=== PATIENT | female | born 1990 | race Caucasian/White ===

== ENCOUNTER 2024-12-21 17:33 | Emergency (ER) | payer BC, SELFPAY ==
[2024-12-21 17:59] VITALS: BP 105/73; PULSE 92; RESP 18; TEMP 36.9; O2SAT 97
[2024-12-21 18:00] VITALS: BMI 22.4
--- NOTE | 2024-12-21 18:14 | XR_ITS ---
Examination: PA lateral chest 2 views Technique: Upright PA lateral chest 2 views Exam date and time: Coughing today Findings: Normal heart size Lungs are clear The osseous structures are intact Impression: No active disease
--- NOTE | 2024-12-21 18:23 | PD.EDURI ---
Upper Respiratory Inf. RME/HPI General Chief Complaint: Shortness of Breath/Dyspnea Stated Complaint: COUGH WITH HX ASTHMA; INHALER NOT HELPING Time Seen by Provider: 12/21/24 18:07 Arrival date/time: 12/21/24 17:33 RME / HPI RME / HPI Narrative: 34-year-old female with history of asthma presents with complaint of cough for approximately 1 week. Patient completed course of antibiotics and is not feeling better. She reports shortness of breath but denies any chest pain. No abdominal pain. No nausea or vomiting. Related Data Home Medications ?Medication ?Instructions ?Recorded ?Confirmed vit no.95-ferrous 1 tab PO QDAY 09/21/19 06/08/23 fumarate 28 mg-folic acid 800 mcg tablet () Previous Rx's ?Medication ?Instructions ?Recorded docusate sodium 100 mg capsule 100 mg PO BID #60 caps 06/09/23 (Colace) ibuprofen 800 mg tablet 800 mg PO Q6H PRN pain #90 tabs 06/09/23 lanolin 50 % topical ointment 1 applic topical TID PRN skin 06/09/23 irritation #15 tubes sulfamethoxazole 800 1 tab PO BID #14 tabs 07/24/23 mg-trimethoprim 160 mg tablet (Bactrim DS) dextromethorphan-guaifenesin 10 10 ml PO Q8H PRN cough #500 mL 12/21/24 mg-100 mg/5 mL oral liquid prednisone 20 mg tablet 40 mg (2 x 20 mg) PO QDAY 3 days 12/21/24 #6 tabs Allergies Allergy/AdvReac Type Severity Reaction Status Date / Time latex Allergy Severe rash Verified 12/21/24 17:34 Penicillins Allergy Severe SOB Verified 12/21/24 17:34 Review of Systems Review of Systems Narrative Review of Systems: Review of systems negative except as outlined in the HPI. Past Medical History Past Medical History NEUROLOGIC: Negative Neurological Disorders CARDIAC: Negative Cardiac Disorders or Congestive Heart Failure RESPIRATORY: Positive Asthma; Negative Chronic Obstructive Pulmonary Disease (COPD) GASTROINTESTINAL: Negative Gastrointestinal Disorders, Hepatitis or Colorectal Cancer GENITOURINARY: Negative Genitourinary Disorders, Renal Disease or Prostate Cancer REPRODUCTIVE: Positive Previous Pregnancies; Negative Breast Cancer, Endometriosis, Genital Herpes, Gonorrhea, Pelvic Inflammatory Disease, Syphilis, Testicular Cancer or Uterine Prolapse MUSCULOSKELETAL: Positive Musculoskeletal Disorders and Scoliosis; Negative Bone Cancer ENDOCRINE: Negative Endocrine Disorders, Diabetes Mellitus Type 1 or Diabetes Mellitus Type 2 HEMATOLOGIC: Positive Blood Disorders and Anemia; Negative Leukemia, Hemophilia, Thalassemia, Sickle Cell Disease or Clotting Problems PSYCHO/SOCIAL: Positive Depression, Anxiety and Depression OTHER HISTORY: Positive Hospitalization and Falls (04/2023); Negative Autoimmune Disease, Shingles, Blood Transfusions, Blood Transfusion Reaction, Anesthesia Reactions, Organ Transplant, Chemotherapy, Radiation Therapy, Hyperbaric Therapy, MRSA, VRSA, Vancomycin-Resistant Enterococci, Human Immunodeficiency Virus (HIV), Chicken Pox, Measles, Mumps, Rubella ([place] Measles), Pertussis, Clostridium Difficile, Cancer, Breast Cancer, Cervical Cancer, Colorectal Cancer, Lung Cancer, Ovarian Cancer, Prostate Cancer or Testicular Cancer Family History FAMILY HISTORY: Positive Family Psychiatric Problems, Family Cardiac Disorders (father-HTN), Family Gastrointestinal Problems (grandmother-chrones), Family Cancer (grandfather) and Family Surgery (mother); Negative Family Respiratory Disorders or Family Anesthesia Reaction Surgical History SURGICAL: Positive Tonsillectomy (2004); Negative Endocrine Surgery, Ear Surgery, Abdominal Surgery, Nephrectomy, Joint Replacement, Neurologic Surgery, Mastectomy, Section or Organ Transplant Social History SMOKING STATUS: Never smoker SECOND HAND EXPOSURE: No SUBSTANCE USE: does not use Course Quality Measures none Orders Category Date Time Status XR chest 2V Stat Exams 12/21/24 18:14 Taken Albuterol/Ipratr Rt Manasa [Duoneb Rt Manasa] Med 12/21/24 18:14 Discontinued 3 ml INH X1 ONE Vital Signs Vital signs: Vital Signs Temperature 98.5 F 12/21/24 17:59 Pulse Rate 92 12/21/24 17:59 Respiratory Rate 18 12/21/24 17:59 Blood Pressure 105/73 12/21/24 17:59 Pulse Oximetry (%) 97 12/21/24 17:59 Oxygen Delivery Method Room Air 12/21/24 17:59 Upper Respiratory Infection MDM Narrative MDM Narrative:: Patient presents with cough and shortness of breath. Differential diagnoses include URI, pneumonia, asthma exacerbation, bronchitis, pulmonary embolism. Considered PE, but PERC negative, and history more consistent with shortness of breath related to bronchospasm. Chest x-ray obtained which showed no evidence of pneumonia. Patient likely has a viral URI. Feeling much better after breathing treatment. Counseled to follow-up with primary care. Return to ED precautions given. Patient data External records reviewed:: [facility] previous records Clinical information provided by:: patient Social determinants that could affect healthcare access:: none Patient has the following chronic illnesses:: Asthma, anemia How is presenting disease/condition affected by chronic disease/condition?: exacerbated by Evaluation data The following diagnostics were reviewed and interpreted by me:: radiology exam(s) Lab and/or radiology exams considered but not ordered:: Considered CT angio chest, but PERC negative. Very low suspicion for PE Interpretation Summary: Chest x-ray: No infiltrate, effusion, or pneumothorax. Independently interpreted by me. Medications / Prescriptions Medications or Prescriptions considered but not ordered:: N/A Medication administrations:: Medication Administration History Discontinued Medications Albuterol/Ipratropium (Albuterol/Ipratropium (Duoneb) Rt Manasa 3 Ml Nebu) 3 ml INH X1 ONE Stop: 12/21/24 18:15 Last Admin: 12/21/24 18:28 Dose: 3 ml Documented By: PAR See above Consultations Consultation(s) initiated? (list below): No Diagnosis Upper Respiratory Differential Diagnosis: upper respiratory infection, viral infection, bronchitis, influenza, pharyngitis and other (Pneumonia) Most likely diagnosis given after review of the tests above:: Acute bronchitis Admission Indicated Admission indicated?: not indicated Admission Request Was there a request for admission?: No Disposition Plan Disposition Plan: Discharge Discharge Attestation Discharge Attestation: The patient and all family members were given an opportunity to ask questions and understood the discharge instructions. Discharge instructions specifically effects, indications for sooner follow up or return to the emergency department, and the expected course of current diagnosis. Patient condition: Stable Discharge Plan Plan Patient Disposition: HOME (Self Care) Prescriptions/Referrals Prescriptions/Med Rec: New dextromethorphan-guaifenesin 10-100 mg/5 mL liquid 10 ml PO Q8H PRN (Reason: cough) Qty: 500 0RF prednisone 20 mg tablet 40 mg PO QDAY 3 Days Qty: 6 0RF Rx Instructions: First dose was given today in ED No Action PNV cmb#95-ferrous fumarate-FA [] 28 mg iron- 800 mcg Tablet 1 tab PO QDAY sulfamethoxazole-trimethoprim [Bactrim DS] 800-160 mg tablet 1 tab PO BID Qty: 14 0RF ibuprofen 800 mg tablet 800 mg PO Q6H MDD 4 PRN (Reason: pain) Qty: 90 0RF docusate sodium [Colace] 100 mg capsule 100 mg PO BID Qty: 60 0RF lanolin 50 % ointment 1 applic topical TID PRN (Reason: skin irritation) Qty: 15 0RF Referrals: Miguel Santana MD [Primary Care Provider] - In 1 week Problem List Clinical Impression: Acute bronchitis Patient/Caregiver Discharge Instructions Education Materials: Acute Bronchitis Additional Instructions: Use tea/honey for cough. You may find that a humidifier also helps for cough. Rest and drink plenty of fluids. OTC ibuprofen for aches and fever. Take medication as prescribed. Return to the ED for any new or worsening symptoms. Print Language: Grenadian Stand Alone Forms: [employer]lyssa Award Info., Patient Portal Info Letter
[2024-12-21] MEDS: ALBUTEROL/IPRATROPIUM (Duoneb) RT SOL 3 ML NEBU INH (18:28)
[2024-12-21 18:38] VITALS: PULSE 102; RESP 18; O2SAT 100
== END 2024-12-21 19:24 | disposition home or self-care (01) ==
PROVIDERS: Emergency Provider Emergency Medicine; PCP Family Medicine
DX: J20.9 Acute bronchitis, unspecified (principal)
CPT/HCPCS: 71046; 94640; 99283; A9270